=== PATIENT | female | born 1925 | race Caucasian/White ===

== ENCOUNTER 2017-04-05 07:53 | Inpatient (IN) | payer MEDICARE ==
[~2017-04-05] VITALS: Ht 147.3 cm; Wt 60.5 kg
[~2017-04-05 07:53] MED LIST: ADVA500A INH; ALPR.5 PO; CHOL1CAP32 PO; IBUP400T20 PO; LOSA100T3 PO; OMEP40CA2 PO; PRESERVISION PO
[2017-04-05 07:54] VITALS: BP 160/72; PULSE 88; RESP 20; TEMP 98; O2SAT 96
[2017-04-05 08:20] VITALS: BP 166/72; PULSE 79; RESP 19; O2SAT 94
--- NOTE | 2017-04-05 08:22 | PD ---
HPI Chief Complaint: GI Complaint Time Seen by Provider: 08:22 Travel History International Travel<30 days: No Contact w/Intl Traveler<30days: No Traveled to known affect area: No History of Present Illness HPI 89-year-old female came to the emergency room with history of diarrhea on and off for past almost 1 week. Patient says that after he started the first day she took a couple of Imodium and it had stopped but started again. Last night she was on the toilet for extended amount of time because of continuous watery stool. Then finally at 1 AM she took one Imodium pill and another one at 3 AM. She says since then she has not had anymore bowel movements. However because she was not feeling well she decided to come to the emergency room. Her brought her in. She says she is little nauseous but hasn't had any vomiting. No other sick contacts. No recent history of antibiotic conception or hospitalization. Patient has never had C. difficile colitis. Vital signs were acceptable. PFSH Past Medical History Narrative Medical Mr. for past medical, surgical, social and family history was reviewed from the nursing note. Asthma: Yes Cancer: No Cardiovascular Problems: Yes (HTN) Endocrine: No Genitourinary: No Hypertension: Yes Musculoskeletal: Yes Neurologic: No Psychiatric: No Reproductive: No Respiratory: Yes (ASTHMA) Past Surgical History Hysterectomy: Yes Social History Alcohol Use: No Tobacco Use: No Substance Use: No Allergies-Medications (Allergen,Severity, Reaction): Coded Allergies: Adrenalin (Verified Allergy, Severe, 04/05/17) Sulfa (Verified Allergy, Severe, 04/05/17) Comments List allergies reviewed from the nursing note. Reported Meds & Prescriptions Reported Meds & Active Scripts Active Xanax (Alprazolam) 0.5 Mg Tab 1-2 Tab PO HS PRN Advair Diskus Inh (Fluticasone-Salmeterol Inh) 500-50 Mcg/Blist Aer 1 Puff INH BID Rinse mouth after use. Losartan-Hydrochlorothiazide 100-12.5 Mg Tab 1 Tab PO DAILY [Preservision] 1 Tab PO BID Reported Imodium A-D (Loperamide HCl) 2 Mg Capsule 2 Mg PO DIRECTED PRN One capsule after each loose stool. Not to exceed 8 tablets per day. Tums (Calcium Carbonate (Antacid)) 500 Mg Chew 500 Mg CHEW PRN D3-1000 (Cholecalciferol) 1,000 Unit Cap 1 Cap PO DAILY Ibuprofen 400 Mg Tab 400 Mg PO HS 5 Days Omeprazole 40 Mg Cap 40 Mg PO DAILY Narrative Medication List of her home medications reviewed from the nursing note. Review of Systems Except as stated in HPI: all other systems reviewed are Neg Physical Exam Narrative GENERAL: Awake, alert, elderly, frail, moderate distress SKIN: Focused skin assessment warm/dry. HEAD: Atraumatic. Normocephalic. EYES: Pupils equal and round. No scleral icterus. No injection or drainage. ENT: No nasal bleeding or discharge. Dry mucous membrane NECK: Trachea midline. No JVD. CARDIOVASCULAR: Regular rate and rhythm. No murmur appreciated. RESPIRATORY: No accessory muscle use. Clear to auscultation. Breath sounds equal bilaterally. GASTROINTESTINAL: Abdomen soft, non-tender, nondistended. Hepatic and splenic margins not palpable. MUSCULOSKELETAL: No obvious deformities. No clubbing. No cyanosis. No edema. NEUROLOGICAL: Awake and alert. No obvious cranial nerve deficits. Motor grossly within normal limits. Normal speech. PSYCHIATRIC: Appropriate mood and affect; insight and judgment normal. Data Data Last Documented VS Vital Signs Date Time Temp Pulse Resp B/P Pulse Ox O2 Delivery O2 Flow Rate FiO2 04/05/17 11:35 82 19 135/62 96 Room Air 04/05/17 07:54 98.0 Orders Complete Blood Count With Diff (04/05/17 08:32) Comprehensive Metabolic Panel (04/05/17 08:32) Iv Access Insert/Monitor (04/05/17 08:32) Ecg Monitoring (04/05/17 08:32) Oximetry (04/05/17 08:32) Sodium Chlor 0.9% 1000 Ml Inj (Ns 1000 M (04/05/17 08:32) Sodium Chloride 0.9% Flush (Ns Flush) (04/05/17 08:45) C Diff Toxin Pcr (04/05/17 08:51) Potassium Chloride (Kcl) (04/05/17 09:30) Sodium Chlor 0.9% 1000 Ml Inj (Ns 1000 M (04/05/17 09:30) Diphenoxylate/Atropine Tab (Lomotil Tab) (04/05/17 09:45) Metronidazole (Flagyl) (04/05/17 12:00) Admit To Inpatient (04/05/17 ) Vital Signs (Adult) Q4H (04/05/17 13:02) Activity Bed Rest (04/05/17 13:02) Diet Npo (04/05/17 Lunch) Sodium Chloride 0.9% Flush (Ns Flush) (04/05/17 13:15) Sodium Chloride 0.9% Flush (Ns Flush) (04/05/17 13:15) Inpatient Certification (04/05/17 ) Admit Order (Ed Use Only) (04/05/17 13:06) Labs Laboratory Tests Test 04/05/17 04/05/17 08:15 09:00 White Blood Count 10.3 TH/MM3 Red Blood Count 4.20 MIL/MM3 Hemoglobin 13.0 GM/DL Hematocrit 38.4 % Mean Corpuscular Volume 91.5 FL Mean Corpuscular Hemoglobin 30.9 PG Mean Corpuscular Hemoglobin 33.7 % Concent Red Cell Distribution Width 14.1 % Platelet Count 216 TH/MM3 Mean Platelet Volume 8.5 FL Neutrophils (%) (Auto) 78.7 % Lymphocytes (%) (Auto) 9.7 % Monocytes (%) (Auto) 9.1 % Eosinophils (%) (Auto) 1.0 % Basophils (%) (Auto) 1.5 % Neutrophils # (Auto) 8.1 TH/MM3 Lymphocytes # (Auto) 1.0 TH/MM3 Monocytes # (Auto) 0.9 TH/MM3 Eosinophils # (Auto) 0.1 TH/MM3 Basophils # (Auto) 0.2 TH/MM3 CBC Comment DIFF FINAL Differential Comment Sodium Level 141 MEQ/L Potassium Level 3.1 MEQ/L Chloride Level 103 MEQ/L Carbon Dioxide Level 30.2 MEQ/L Anion Gap 8 MEQ/L Blood Urea Nitrogen 22 MG/DL Creatinine 0.76 MG/DL Estimat Glomerular Filtration 72 ML/MIN Rate Random Glucose 93 MG/DL Calcium Level 10.3 MG/DL Total Bilirubin 0.8 MG/DL Aspartate Amino Transf 10 U/L (AST/SGOT) Alanine Aminotransferase 14 U/L (ALT/SGPT) Alkaline Phosphatase 63 U/L Total Protein 7.3 GM/DL Albumin 3.6 GM/DL Stool C. difficile Toxin (PCR) POSITIVE Stl C. difficile Toxin PRESUMPTIVE Epiderm 027 NEGATIVE MDM Medical Decision Making Medical Screen Exam Complete: Yes Emergency Medical Condition: Yes Medical Record Reviewed: Yes Differential Diagnosis Diarrhea, dehydration, C. difficile colitis Narrative Course 9:31 AM I was told by the nurse that patient has had another bowel movement. The stool has been sent for C. difficile. Her blood test results of back and she has slightly elevated BUN which is suggestive of dehydration. CBC is within acceptable range. Her hemoglobin is 13.5 which for her age seems a little hemoconcentrated and hence) dehydration again. I've given her one bolus already and she is going to get a second one. I'll give her a dose of Lomotil. Eventually I intend to discharge her home. 12:09 PM blood test results of back and patient's potassium is low which has been replaced. Her stool test however came back positive for C. difficile. Given her age and the fact that the symptoms have been going on for past 1 week and progressively worsening I discussed with her and I would prefer her to be admitted. She has agreed to that. Awaiting for the residents to call back. Procedures EKG Prior to Arrival: No Diagnosis Primary Impression: Diarrhea Qualified Code: A09 - Diarrhea of infectious origin Additional Impression: C. difficile colitis Admitting Information Admitting Physician Requests: Admit Scripts Metronidazole (Flagyl)500 Mg [id number] Mg PO Q8H #39 TAB Prov:John Gomez MD R3 04/06/17 Danika Posadas MD Apr 05, 2017 08:22
[2017-04-05] MEDS ORDERED: TUMS500C CHEW (08:30)
[2017-04-05] MEDS ORDERED: LOPE-1 PO (08:30)
[2017-04-05] MEDS ORDERED: SODIUM CHLOR 0.9% 1000 ML INJ 1,000 ML IV SCH (08:32)
[2017-04-05 08:42] VITALS: O2SAT 94
[2017-04-05] MEDS ORDERED: SODIUM CHLORIDE 0.9% FLUSH 10 ML FLUSH IV FLUSH PRN ×3 (08:45→14:30)
[2017-04-05 08:51] LABS: AUTOMATED NEUTROPHIL # 8.1 TH/MM3 (1.8-7.7); BASOPHIL # 0.2 TH/MM3 (0-0.2); BASOPHIL % 1.5 % (0.0-2.0); EOSINOPHIL # 0.1 TH/MM3 (0-0.4); HEMATOCRIT 38.4 % (35.0-46.0); HEMO FLAGS DIFF FINAL; LYMPH % 9.7 % (9.0-44.0); MEAN CELL VOLUME 91.5 FL (80.0-100.0); MEAN CORPUSCULAR HEMOGLOBIN 30.9 PG (27.0-34.0); MEAN CORPUSCULAR HGB CONC 33.7 % (32.0-36.0); MONO % 9.1 % (0.0-8.0); NEUT % 78.7 % (16.0-70.0); PLATELET COUNT 216 TH/MM3 (150-450); RED CELL DISTRIBUTION WIDTH 14.1 % (11.6-17.2); WHITE BLOOD COUNT 10.3 TH/MM3 (4.0-11.0)
[2017-04-05 09:19] LABS: ANION GAP 8 MEQ/L (5-15); AST (GOT) 10 U/L (15-37); BICARBONATE 30.2 MEQ/L (21.0-32.0); BLOOD UREA NITROGEN 22 MG/DL (7-18); CHLORIDE 103 MEQ/L (98-107); GLOMERULAR FILTRATION RATE 72 ML/MIN (>89); POTASSIUM 3.1 MEQ/L (3.5-5.1); SODIUM (NA) 141 MEQ/L (136-145)
[2017-04-05 09:25] LABS: ALKALINE PHOSPHATASE 63 U/L (45-117); ALT (GPT) 14 U/L (10-53); TOTAL BILIRUBIN ADULT 0.8 MG/DL (0.2-1.0)
[2017-04-05] MEDS ORDERED: SODIUM CHLOR 0.9% 1000 ML INJ 1,000 ML IV ONE (09:30)
[2017-04-05] MEDS ORDERED: POTASSIUM CHLORIDE 20 MEQ CONTROLLED RELEASE TAB PO ONE (09:30)
[2017-04-05] MEDS ORDERED: DIPHENOXYLATE/ATROPINE 2.5 MG/0.025 MG TAB PO ONE (09:45)
[2017-04-05 11:12] LABS: C. DIFF EPI 027 PRESUMPTIVE NEGATIVE (NEGATIVE)
[2017-04-05 11:25] LABS: C. DIFF TOXIN PCR POSITIVE (NEGATIVE)
[2017-04-05 11:35] VITALS: BP 135/62; PULSE 82; RESP 19; O2SAT 96
[2017-04-05] MEDS ORDERED: metroNIDAZOLE 500 MG TAB PO ONE (12:00)
--- NOTE | 2017-04-05 13:00 | HHI.HP ---
[facility] Service Family Medicine Primary Care Physician Celso Mariano MD Admission Diagnosis Diagnoses: International Travel<30 Days: No Contact w/Intl Traveler<30days: No Known Affected Area: No History of Present Illness Joyce Vickers is a very pleasant 89 year old woman with a h/o HTN who presents to the ED due to intermittent diarrhea over the past 6 days associated with crampy abdominal pain. She states she was in her normal state of health this past Friday 03/30. On Sunday she reports having loose stools with large volume throughout the day. She states she did take Imodium to try to prevent diarrhea. States this past Sunday her stools were no longer watery however she had many small BMs of formed stools. She reports her diarrhea seeming to have resolved for about a day or two but then began to recur 1-2 days ago. She denies any melena or visible blood in her stools. She denies taking any antibiotics recently. No change in her prescribed medications recently. Denies taking anything else OTC other than Imodium. She states she did travel up to [place] by way of the [employer] prior to her onset of symptoms. Denies others around her having symptoms similar to hers. No sick contacts. She does endorse mild chills last night. Denies fevers, night sweats , CP, SOB, cough, dysuria, hematuria. States her abdominal pain is primary around her umbilicus, is crampy in nature, nonradiating, the pain has overall been mild. 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 Osteoarthritis Compression fractures of T11, L1 LS spinal stenosis Osteoporosis Hospitalized 01/2016 for sinus bradycardia, first degree AV block, dizziness; beta-aries therapy stopped Past Surgical History SHY with BSO (benign disease process) Repair of deviated septum Arthroscopic knee surgery Allergies: Coded Allergies: Adrenalin (Verified Allergy, Severe, 04/05/17) Sulfa (Verified Allergy, Severe, 04/05/17) Family History Father: at 88 of [place], also had history of bladder cancer Mother: at 80 of CHF Children: daughter living in winter Social History Marrital Status: Living Situation: living with in independent apartment at [facility] - previously was living in [place] Education: college degree Work history: clerical (retired) Tobacco: none Alcohol: none Illicit drug use: none Physical Exam Vital Signs Vital Signs Date Time Temp Pulse Resp B/P Pulse Ox O2 Delivery O2 Flow Rate FiO2 04/05/17 11:35 82 19 135/62 96 Room Air 04/05/17 08:42 94 Room Air 04/05/17 08:20 79 19 166/72 94 Room Air 04/05/17 07:54 98.0 88 20 160/72 96 Room Air Physical Exam GENERAL: NAD, lying comfortably in bed NEURO: Alert. Normal speech. retina subspecialist grossly intact. Motor grossly normal. SKIN: Warm and dry. No rashes or erythema. No skin tenting. Good turgor. HEAD: Normocephalic. Atraumatic. EYES: PERRL. EOMI. No scleral icterus. No injection or drainage. ENT: No nasal drainage. Moist mucous membranes. No oral ulcers or lesions. NECK: Supple, trachea midline. No JVD. CARDIOVASCULAR: Regular rate and rhythm without murmurs, rubs, or gallops. Peripheral pulses 2+. Capillary refill ~2 seconds. RESPIRATORY: Breath sounds clear to auscultation and equal bilaterally, without wheezes, rales, or rhonchi. No accessory muscle use. GASTROINTESTINAL: Abdomen soft, mildly tender to deep palpation LLQ, other quadrants are nontender, nondistended, normal BS. No organomegaly or masses. No rebound tenderness. No guarding. MUSCULOSKELETAL: No lower extremity edema. Normal range of motion. BACK: Nontender without obvious deformity. Laboratory Laboratory Tests Test 04/05/17 04/05/17 08:15 09:00 White Blood Count 10.3 Red Blood Count 4.20 Hemoglobin 13.0 Hematocrit 38.4 Mean Corpuscular Volume 91.5 Mean Corpuscular Hemoglobin 30.9 Mean Corpuscular Hemoglobin 33.7 Concent Red Cell Distribution Width 14.1 Platelet Count 216 Mean Platelet Volume 8.5 Neutrophils (%) (Auto) 78.7 Lymphocytes (%) (Auto) 9.7 Monocytes (%) (Auto) 9.1 Eosinophils (%) (Auto) 1.0 Basophils (%) (Auto) 1.5 Neutrophils # (Auto) 8.1 Lymphocytes # (Auto) 1.0 Monocytes # (Auto) 0.9 Eosinophils # (Auto) 0.1 Basophils # (Auto) 0.2 CBC Comment DIFF FINAL Differential Comment Sodium Level 141 Potassium Level 3.1 Chloride Level 103 Carbon Dioxide Level 30.2 Anion Gap 8 Blood Urea Nitrogen 22 Creatinine 0.76 Estimat Glomerular Filtration 72 Rate Random Glucose 93 Calcium Level 10.3 Total Bilirubin 0.8 Aspartate Amino Transf 10 (AST/SGOT) Alanine Aminotransferase 14 (ALT/SGPT) Alkaline Phosphatase 63 Total Protein 7.3 Albumin 3.6 Stool C. difficile Toxin (PCR) POSITIVE Stl C. difficile Toxin PRESUMPTIVE Epiderm 027 NEGATIVE Result Diagram: 04/05/1781404/05/17814 Assessment and Plan Assessment and Plan 89 year old female being admitted for C diff colitis. Code Status Full code Discussed Condition With Dr. Cooley Problem List: (1) C. difficile diarrhea Status: Acute Plan: - C diff toxin PCR positive - No prior history of C diff in this patient per records - Given 500 mg PO Flagyl in the ED - Continue Flagyl 500 mg po TID - No leukocytosis - Cr 0.76 - Albumin 3.6 - Consider probiotics, will hold off at this time - s/p 2L NS bolus in ED - Continue MIVF NS at 100 cc/hr (2) Hypertension Status: Chronic Plan: Continue Losartan-HCTZ 100-12.5 mg once daily Monitor vitals q4h (3) Asthma Status: Chronic Plan: Stable Continue home Advair 1 puff bid (4) Nutrition, metabolism, and development symptoms Status: Acute Plan: Fluids: NS at 100 cc/hr Electrolytes: K+ 3.1 repleted orally, continue to monitor Nutrition: Regular DVT ppx: Lovenox 40 mg sq q24h GI ppx: Protonix 40 mg po daily Physician Certification 2 Midnight Certification Type: Admission for Inpatient Services Order for Inpatient Services The services are ordered in accordance with Medicare regulations or non- Medicare payer requirements, as applicable. In the case of services not specified as inpatient-only, they are appropriately provided as inpatient services in accordance with the 2-midnight benchmark. Estimated LOS (days): 2 days is the estimated time the patient will need to remain in the hospital, assuming treatment plan goals are met and no additional complications. Post-Hospital Plan: Home Shelton Ennis MD R1 Apr 05, 2017 13:00
[2017-04-05] MEDS ORDERED: SODIUM CHLORIDE 0.9% FLUSH 10 ML FLUSH IV FLUSH SCH (13:15)
[2017-04-05] MEDS ORDERED: ONDANSETRON HCL 4 MG/2 ML VIAL IVP PRN (14:30)
[2017-04-05] MEDS ORDERED: NALOXONE HCL 0.4 MG/ML AMP IV PRN (14:30)
[2017-04-05] MEDS ORDERED: ACETAMINOPHEN 325 MG TAB PO PRN (14:30)
[2017-04-05] MEDS: SODIUM CHLORIDE 0.9% FLUSH 10 ML FLUSH IV FLUSH SCH ×2 (14:30→20:33)
[2017-04-05] MEDS ORDERED: NON-FORMULARY DRUG (Losartan-Hydrochlorothiazide 1 TAB) PO SCH (14:45)
[2017-04-05 16:00] VITALS: BP 121/60; PULSE 76; RESP 20; TEMP 98.4; O2SAT 92
--- NOTE | 2017-04-05 16:11 | RADRPT ---
EXAM DATE/TIME: 04/05/2017 14:55 [facility] COMPARISON: CHEST PA & LAT, September 19, 2014, 11:40. INDICATIONS : Chest discomfort. MEDICAL HISTORY : Hypertension. Asthma. SURGICAL HISTORY : None. ENCOUNTER: Initial ACUITY: 1 day PAIN SCORE: 0/10 LOCATION: Bilateral chest FINDINGS: Frontal and lateral views of the chest demonstrate a normal-sized cardiac silhouette with calcificati on of the aorta. No pleural effusion, airspace consolidation or pneumothorax is identified. There is stable minimal blunting of the right costophrenic angle on the frontal projection. Bones and soft tis sues demonstrate no acute finding. Bones are undermineralized with degenerative changes and accentuat ed thoracic kyphosis. There has been prior vertebroplasty at 2 levels. CONCLUSION: Stable chest x-ray. No acute cardiopulmonary abnormality is identified. Osorio Perez MD on April 05, 2017 at 16:08 Board Certified Radiologist. This report was verified electronically.
[2017-04-05] MEDS: HYDROCHLOROTHIAZIDE 12.5 MG CAP PO SCH (17:21)
[2017-04-05] MEDS: LOSARTAN 50 MG TAB PO SCH (17:21)
[2017-04-05] MEDS: SODIUM CHLOR 0.9% 1000 ML INJ 1,000 ML IV SCH (17:21)
[2017-04-05] MEDS: ENOXAPARIN SODIUM 40 MG/0.4 ML SYRINGE SQ SCH (17:22)
[2017-04-05] MEDS: PANTOPRAZOLE SOD 40 MG DELAYED RELEASE TAB PO SCH (17:22)
[2017-04-05 20:00] VITALS: BP 141/82; PULSE 83; RESP 18; TEMP 99.2; O2SAT 93
[2017-04-05] MEDS: metroNIDAZOLE 500 MG TAB PO SCH (20:33)
[2017-04-05] MEDS: BUDESONIDE-FORMOTEROL 160/4.5 MCG INHALER INH SCH (21:00)
[2017-04-05] MEDS ORDERED: ALPRAZolam 0.5 MG TAB PO PRN (21:00)
[2017-04-06] VITALS (7 sets, daily range): BP systolic 123–151; BP diastolic 56–66; PULSE 67–82; RESP 18–20; TEMP 97.8–98.9; O2SAT 93–97
[2017-04-06] MEDS: SODIUM CHLOR 0.9% 1000 ML INJ 1,000 ML IV SCH ×2 (02:00→12:29)
[2017-04-06] MEDS: metroNIDAZOLE 500 MG TAB PO SCH ×3 (06:05→20:06)
[2017-04-06 08:53] LABS: AUTOMATED NEUTROPHIL # 3.5 TH/MM3 (1.8-7.7); BASOPHIL # 0.1 TH/MM3 (0-0.2); BASOPHIL % 1.1 % (0.0-2.0); EOSINOPHIL # 0.1 TH/MM3 (0-0.4); EOSINOPHIL % 2.2 % (0.0-4.0); HEMATOCRIT 32.1 % (35.0-46.0); HEMO FLAGS DIFF FINAL; LYMPH % 20.6 % (9.0-44.0); LYMPHOCYTE # 1.2 TH/MM3 (1.0-4.8); MEAN CELL VOLUME 91.7 FL (80.0-100.0); MEAN CORPUSCULAR HEMOGLOBIN 31.1 PG (27.0-34.0); MONO % 14.1 % (0.0-8.0); PLATELET COUNT 183 TH/MM3 (150-450); WHITE BLOOD COUNT 5.6 TH/MM3 (4.0-11.0)
[2017-04-06] MEDS: LOSARTAN 50 MG TAB PO SCH (09:05)
[2017-04-06] MEDS: SODIUM CHLORIDE 0.9% FLUSH 10 ML FLUSH IV FLUSH SCH ×2 (09:05→20:07)
[2017-04-06] MEDS: PANTOPRAZOLE SOD 40 MG DELAYED RELEASE TAB PO SCH (09:05)
[2017-04-06] MEDS: HYDROCHLOROTHIAZIDE 12.5 MG CAP PO SCH (09:05)
[2017-04-06] MEDS: BUDESONIDE-FORMOTEROL 160/4.5 MCG INHALER INH SCH ×2 (09:06→20:07)
[2017-04-06 09:19] LABS: ALKALINE PHOSPHATASE 54 U/L (45-117); ALT (GPT) 13 U/L (10-53); ANION GAP 6 MEQ/L (5-15); AST (GOT) 12 U/L (15-37); BICARBONATE 28.2 MEQ/L (21.0-32.0); BLOOD UREA NITROGEN 14 MG/DL (7-18); CHLORIDE 106 MEQ/L (98-107); GLOMERULAR FILTRATION RATE 86 ML/MIN (>89); POTASSIUM 3.4 MEQ/L (3.5-5.1); SODIUM (NA) 140 MEQ/L (136-145)
--- NOTE | 2017-04-06 15:22 | HHI.FPPN ---
Subjective Remarks The pt states that she is feeling much better today and has not had 1 BM since she was given Imodium and Flagyl yesterday. She has not had any stomach cramps since yesterday. She recently traveled to [place] and ate out most of the time but did not eat any raw foods. She was not currently on any antibiotics or around anyone with similar symptoms. She denies chest pain, SOB, fevers, nausea/ vomiting, changes in urination, and dizziness. She has no concerns at this time. (Trae Cooley MD R1) Objective Vitals Vital Signs Date Time Temp Pulse Resp B/P Pulse Ox O2 Delivery O2 Flow Rate FiO2 04/06/17 13:01 94 04/06/17 12:00 97.8 69 18 151/66 94 04/06/17 08:00 98.8 70 18 127/56 93 04/06/17 04:00 98.2 73 20 123/58 94 04/06/17 04:00 Room Air 04/06/17 00:00 Room Air 04/06/17 00:00 98.9 82 18 128/61 93 04/05/17 20:00 99.2 83 18 141/82 93 04/05/17 20:00 Room Air 04/05/17 16:00 98.4 76 20 121/60 92 I/O 04/05/17 04/05/17 04/05/17 04/06/17 04/06/17 04/06/17 07:00 15:00 23:00 07:00 15:00 23:00 Intake Total 360 ml 893 ml Output Total 700 ml Balance 360 ml 193 ml Intake Oral 360 ml 120 ml IV Total 773 ml Output Urine Total 700 ml # Voids 1 # Bowel Movements 1 0 (Trae Cooley MD R1) Result Diagram: 04/06/17 0757 04/06/17 0757 Other Results Imaging Last Impressions Chest X-Ray 04/05/17 1429 Signed Impressions: Service Date/Time: April 14:55 - CONCLUSION: Stable chest x-ray. No acute cardiopulmonary abnormality is identified. Osorio Perez MD Objective Remarks GENERAL: NAD, lying comfortably in bed NEURO: Alert. Normal speech. SKIN: Warm and dry. HEAD: Normocephalic. Atraumatic. EYES: No scleral icterus. No injection or drainage. ENT: No nasal drainage. Moist mucous membranes. NECK: Supple, trachea midline. No JVD. CARDIOVASCULAR: Regular rate and rhythm without murmurs, rubs, or gallops. Peripheral pulses 2+. RESPIRATORY: Breath sounds clear to auscultation and equal bilaterally, without wheezes, rales, or rhonchi. No accessory muscle use. GASTROINTESTINAL: Abdomen soft and nontender, nondistended, normal BS. No organomegaly or masses. No rebound tenderness. No guarding. MUSCULOSKELETAL: No lower extremity edema. Normal range of motion. Medications and IVs Current Medications Medications (Trade) Dose Ordered Sig/Isaac Route Start Time Stop Time Status Last Admin (NS 1000 ml Inj) 1,000 ml @ 100 mls/hr Q10H IV 04/05/17 16:00 04/06/17 12:29 (NS Flush) 2 ml UNSCH PRN IV FLUSH 04/05/17 14:30 (NS Flush) 2 ml BID IV FLUSH 04/05/17 14:30 04/06/17 09:05 (Tylenol) 650 mg Q4H PRN PO 04/05/17 14:30 (Zofran Inj) 4 mg Q6H PRN IVP 04/05/17 14:30 (Lovenox Inj) 40 mg Q24H SQ 04/05/17 16:00 04/05/17 17:22 (Narcan Inj) 0.4 mg UNSCH PRN IV 04/05/17 14:30 (Flagyl) 500 mg Q8H PO 04/05/17 20:00 04/06/17 12:29 (Symbicort 160-4.5 Inh) 2 puff BID INH 04/05/17 21:00 04/06/17 09:06 (Xanax) 0.5 mg HS PRN PO 04/05/17 21:00 04/05/17 23:12 (Protonix) 40 mg DAILY PO 04/05/17 16:00 04/06/17 09:05 (Cozaar) 100 mg DAILY PO 04/05/17 16:00 04/06/17 09:05 (Microzide) 12.5 mg DAILY PO 04/05/17 16:00 04/06/17 09:05 (Trae Cooley MD R1) A/P Assessment and Plan 89 year old female admitted for C diff colitis. Discharge Planning Pt will be discharged home once stable with fluids and without diarrhea. Anticipate discharge later today. (Trae Cooley MD R1) Attending Attestation THIS CASE WAS DISCUSSED WITH THE RESIDENT PHYSICIANS. I HAVE REVIEWED THE RECORD AND EXAMINATION PERFORMED. AGREE WITH THE ABOVE NOTE AND PLAN OF CARE WAS DISCUSSED. I HAVE AUTHORIZED THE ORDER FOR ADMISSION TO AN IN-PATIENT STATUS. (Moi Cervantes MD) Problem List: (1) C. difficile diarrhea Status: Acute Plan: - C diff toxin PCR positive - No prior history of C diff in this patient per records - Given 500 mg PO Flagyl in the ED - Continue Flagyl 500 mg po TID - No leukocytosis - Cr 0.76 - Albumin 3.6 - Consider probiotics, will hold off at this time - s/p 2L NS bolus in ED - Continue MIVF NS at 100 cc/hr (2) Hypertension Status: Chronic Plan: Continue Losartan-HCTZ 100-12.5 mg once daily Monitor vitals q4h (3) Asthma Status: Chronic Plan: Stable Continue home Advair 1 puff bid (4) Nutrition, metabolism, and development symptoms Status: Acute Plan: Fluids: NS at 100 cc/hr Electrolytes: K+ 3.1 repleted orally, continue to monitor Nutrition: Regular DVT ppx: Lovenox 40 mg sq q24h GI ppx: Protonix 40 mg po daily (Trae Cooley MD R1) Addendum Remarks Patient seen and examined again at 6:00 pm. Patient still has not had a bowel movement since our last examination. She does note that she feels as though she will have one today, but has no sense of urgency. No pain in her chest, shortness of breath, change in urinary habits. On examination her abdomen is soft, nondistended, nontender, without guarding, and has normal bowel sounds in all 4 quadrants. (Trae Cooley MD R1) Trae Cooley MD R1 Apr 06, 2017 15:22 Moi Cervantes MD Apr 08, 2017 14:21
[2017-04-06] MEDS ORDERED: METR-1 PO (18:10)
--- NOTE | 2017-04-06 18:11 | HHI.DCPOC ---
Discharge Care Plan Diagnosis: (1) C. difficile diarrhea (2) Hypertension Goals to Promote Your Health * To prevent worsening of your condition and complications * To maintain your health at the optimal level Directions to Meet Your Goals Take your medications as prescribed Follow your dietary instruction Follow activity as directed Keep your appointments as scheduled Take your immunizations and boosters as scheduled If your symptoms worsen call your PCP, if no PCP go to Urgent Care Center or Emergency Room Smoking is Dangerous to Your Health. Avoid second hand smoke Call the 24-hour hour crisis hotline for domestic abuse at John Gomez MD R3 Apr 06, 2017 18:11
[2017-04-06] MEDS: ENOXAPARIN SODIUM 40 MG/0.4 ML SYRINGE SQ SCH (18:12)
[2017-04-06] MEDS ORDERED: POTASSIUM CHLORIDE 10 MEQ CAP PO ONE (19:00)
== END 2017-04-06 20:22 | disposition home or self-care (01) | DRG 372 ==
LOC: NEPC 07:53 → NEDA 13:08 → N04A 15:43
PROVIDERS: ADMIT Family Medicine; ATTEND Family Medicine
DX: A04.7 Enterocolitis due to Clostridium difficile (principal); H33.22 Serous retinal detachment, left eye; E86.0 Dehydration; E87.6 Hypokalemia; H54.62 Unqualified visual loss, left eye, normal vision right eye; I10 Essential (primary) hypertension; J45.909 Unspecified asthma, uncomplicated; Z87.11 Personal history of peptic ulcer disease; M19.90 Unspecified osteoarthritis, unspecified site; M48.07 Spinal stenosis, lumbosacral region; M81.0 Age-related osteoporosis without current pathological fracture; Z87.310 Personal history of (healed) osteoporosis fracture
CPT/HCPCS: 71020; 80053; 85025; 87493; 96360; J1650; J7030

== ENCOUNTER → 2017-04-11 | Outpatient (CLI) | payer MEDICARE ==
[~2017-04-11] MED LIST changes: +HYDR-3516 PO; +LOPE-1 PO; +METR-1 PO; +TRAM50TA PO; +TUMS500C CHEW; +ZOFR4TAB3 SL
[2017-04-11 15:21] LABS: BICARBONATE 30.9 MEQ/L (21.0-32.0); POTASSIUM 3.5 MEQ/L (3.5-5.1)
== END ==
LOC: ELAB 10:25
PROVIDERS: ATTEND Family Medicine
DX: A04.7 Enterocolitis due to Clostridium difficile (principal); I10 Essential (primary) hypertension
CPT/HCPCS: 36415; 80048

== ENCOUNTER 2017-04-12 10:07 | Emergency (ER) | payer MEDICARE ==
[~2017-04-12] VITALS: Ht 147.3 cm; Wt 61.5 kg
[~2017-04-12 10:07] MED LIST changes: -HYDR-3516 PO; -TRAM50TA PO; -ZOFR4TAB3 SL
[2017-04-12 10:08] VITALS: BP 154/67; PULSE 86; RESP 20; TEMP 98.9; O2SAT 96
[2017-04-12] MEDS ORDERED: SODIUM CHLOR 0.9% 1000 ML INJ 1,000 ML IV SCH (10:25)
--- NOTE | 2017-04-12 10:25 | PD ---
HPI Chief Complaint: GI Complaint Time Seen by Provider: 10:25 Travel History International Travel<30 days: No Contact w/Intl Traveler<30days: No Traveled to known affect area: No History of Present Illness HPI 89-year-old female arrives to the ER describing irregular bowel habits. She reports yesterday for example one bowel movement that was her description a fairly large fecal load. The day prior to yesterday 3 episodes of similar bowel movements occurred. She was diagnosed with C. difficile colitis one week ago and was started on Flagyl and has been compliant with that. She was given Lomotil one week ago and following what had been very frequent diarrhea she had no bowel movement for 3 days. She describes tenesmus. Yesterday the patient experienced a fecal incontinence while rushing to the bathroom. She's had no fever or vomiting. Occasional nausea occurs and is attributed to side effects from Flagyl. She follows with Dr. Mariano. Diet has been normal. PFSH Past Medical History Arthritis: Yes Asthma: Yes Cancer: No Cardiovascular Problems: Yes (HTN) High Cholesterol: No Endocrine: No Genitourinary: No Hypertension: Yes Musculoskeletal: Yes Neurologic: No Psychiatric: No Reproductive: No Respiratory: Yes (ASTHMA) ?: Not Past Surgical History Hysterectomy: Yes Social History Alcohol Use: No Tobacco Use: No Substance Use: No Allergies-Medications (Allergen,Severity, Reaction): Coded Allergies: Adrenalin (Verified Allergy, Severe, 04/05/17) Sulfa (Verified Allergy, Severe, 04/05/17) Reported Meds & Prescriptions Reported Meds & Active Scripts Active Flagyl (Metronidazole) 500 Mg Tab 500 Mg PO Q8H Xanax (Alprazolam) 0.5 Mg Tab 1-2 Tab PO HS PRN Advair Diskus Inh (Fluticasone-Salmeterol Inh) 500-50 Mcg/Blist Aer 1 Puff INH BID Rinse mouth after use. Losartan-Hydrochlorothiazide 100-12.5 Mg Tab 1 Tab PO DAILY [Preservision] 1 Tab PO BID Reported Imodium A-D (Loperamide HCl) 2 Mg Capsule 2 Mg PO DIRECTED PRN One capsule after each loose stool. Not to exceed 8 tablets per day. Tums (Calcium Carbonate (Antacid)) 500 Mg Chew 500 Mg CHEW PRN D3-1000 (Cholecalciferol) 1,000 Unit Cap 1 Cap PO DAILY Ibuprofen 400 Mg Tab 400 Mg PO HS 5 Days Omeprazole 40 Mg Cap 40 Mg PO DAILY Review of Systems Except as stated in HPI: all other systems reviewed are Neg General / Constitutional: No: Fever Gastrointestinal: Positive: Changes in Bowel Habits, No: Nausea Physical Exam Narrative GENERAL: 89-year-old female well-nourished well-developed pleasant SKIN: Warm and dry. HEAD: Atraumatic. Normocephalic. EYES: Pupils equal and round. No scleral icterus. No injection or drainage. ENT: No nasal bleeding or discharge. Mucous membranes pink and moist. NECK: Trachea midline. No JVD. CARDIOVASCULAR: Regular rate and rhythm. RESPIRATORY: No accessory muscle use. Clear to auscultation. Breath sounds equal bilaterally. GASTROINTESTINAL: Abdomen soft, non-tender, nondistended. Hepatic and splenic margins not palpable. MUSCULOSKELETAL: Extremities without clubbing, cyanosis, or edema. No obvious deformities. NEUROLOGICAL: Awake and alert. No obvious cranial nerve deficits. Motor grossly within normal limits. Five out of 5 muscle strength in the arms and legs. Normal speech. PSYCHIATRIC: Appropriate mood and affect; insight and judgment normal. Data Data Last Documented VS Vital Signs Date Time Temp Pulse Resp B/P Pulse Ox O2 Delivery O2 Flow Rate FiO2 04/12/17 10:27 95 Room Air 04/12/17 10:08 98.9 86 20 154/67 Vital signs reviewed Orders Basic Metabolic Panel (Bmp) (04/12/17 10:25) Complete Blood Count With Diff (04/12/17 10:25) Iv Access Insert/Monitor (04/12/17 10:25) Ecg Monitoring (04/12/17 10:25) Oximetry (04/12/17 10:25) Sodium Chlor 0.9% 1000 Ml Inj (Ns 1000 M (04/12/17 10:25) Sodium Chloride 0.9% Flush (Ns Flush) (04/12/17 10:30) Labs Laboratory Tests Test 04/12/17 10:30 White Blood Count 9.0 TH/MM3 Red Blood Count 4.08 MIL/MM3 Hemoglobin 12.1 GM/DL Hematocrit 37.5 % Mean Corpuscular Volume 91.9 FL Mean Corpuscular Hemoglobin 29.7 PG Mean Corpuscular Hemoglobin 32.3 % Concent Red Cell Distribution Width 14.4 % Platelet Count 249 TH/MM3 Mean Platelet Volume 7.8 FL Neutrophils (%) (Auto) 78.6 % Lymphocytes (%) (Auto) 10.6 % Monocytes (%) (Auto) 8.7 % Eosinophils (%) (Auto) 1.1 % Basophils (%) (Auto) 1.0 % Neutrophils # (Auto) 7.1 TH/MM3 Lymphocytes # (Auto) 1.0 TH/MM3 Monocytes # (Auto) 0.8 TH/MM3 Eosinophils # (Auto) 0.1 TH/MM3 Basophils # (Auto) 0.1 TH/MM3 CBC Comment DIFF FINAL Differential Comment Sodium Level 138 MEQ/L Potassium Level 3.7 MEQ/L Chloride Level 102 MEQ/L Carbon Dioxide Level 28.6 MEQ/L Anion Gap 7 MEQ/L Blood Urea Nitrogen 20 MG/DL Creatinine 0.89 MG/DL Estimat Glomerular Filtration 60 ML/MIN Rate Random Glucose 125 MG/DL Calcium Level 9.5 MG/DL MDM Medical Decision Making Medical Screen Exam Complete: Yes Emergency Medical Condition: Yes Medical Record Reviewed: Yes Differential Diagnosis Gastritis, pancreatitis, appendicitis, acute cholecystitis, ascending cholangitis, AAA, perforated viscous, mesenteric ischemia, hepatitis, cystitis, hydronephrosis/hydroureter/nephroureter calculus, mesenteric adenitis, biliary colic Narrative Course CBC & BMP Diagram 04/12/17 10:30 The patient is resting comfortably and feels better, is alert and in no distress. The patients results and examination findings were discussed. The repeat examination is unremarkable and benign. The history, exam, diagnostic testing, and current condition do not suggest any significant pathology to warrant further testing, continued ED treatment, admission, or surgical evaluation at this point. The vital signs have been stable. The patient does not have uncontrollable pain, intractable vomiting, or other significant symptoms. The patient's condition is stable and appropriate for discharge. The patient will pursue further outpatient evaluation with a primary care physician or other designated or consulting physician as indicated in the discharge instructions. The patient expressed understanding and was agreeable with this plan. Diagnosis Primary Impression: Irregular bowel habits Referrals: Celso Mariano MD 2 days Additional Instructions: Please follow the dietary guidelines we discussed. Should you develop a fever, rate current diarrhea with loose stool, bloody stool, vomiting or abdominal pain please do not hesitate to return to the ER or follow up with your primary doctor. Med/Other Pt SpecificInfo: No Change to Meds Disposition: 01 DISCHARGE HOME Condition: Stable Jairon Schwab MD Apr 12, 2017 10:25
[2017-04-12 10:27] VITALS: O2SAT 95
[2017-04-12] MEDS ORDERED: SODIUM CHLORIDE 0.9% FLUSH 10 ML FLUSH IV FLUSH PRN (10:30)
[2017-04-12 10:44] LABS: AUTOMATED NEUTROPHIL # 7.1 TH/MM3 (1.8-7.7); BASOPHIL # 0.1 TH/MM3 (0-0.2); EOSINOPHIL # 0.1 TH/MM3 (0-0.4); EOSINOPHIL % 1.1 % (0.0-4.0); HEMATOCRIT 37.5 % (35.0-46.0); HEMO FLAGS DIFF FINAL; LYMPH % 10.6 % (9.0-44.0); MEAN CELL VOLUME 91.9 FL (80.0-100.0); MEAN CORPUSCULAR HEMOGLOBIN 29.7 PG (27.0-34.0); MEAN CORPUSCULAR HGB CONC 32.3 % (32.0-36.0); MONO % 8.7 % (0.0-8.0); NEUT % 78.6 % (16.0-70.0); PLATELET COUNT 249 TH/MM3 (150-450); RED BLOOD COUNT 4.08 MIL/MM3 (4.00-5.30); RED CELL DISTRIBUTION WIDTH 14.4 % (11.6-17.2)
[2017-04-12 11:01] LABS: BICARBONATE 28.6 MEQ/L (21.0-32.0); POTASSIUM 3.7 MEQ/L (3.5-5.1)
[2017-04-12] MEDS ORDERED: ZOFR4TAB3 SL (11:28)
[2017-06-05] MEDS ORDERED: TRAM50TA PO (16:27)
[2017-06-13] MEDS ORDERED: ADVA500A INH (10:21)
[2017-06-13] MEDS ORDERED: ALPR.5 PO (10:21)
== END 2017-04-12 11:52 | disposition home or self-care (01) ==
LOC: NEPE 10:07
DX: R19.4 Change in bowel habit (principal)
CPT/HCPCS: 80048; 85025; 96360; 99284; J7030

== ENCOUNTER 2017-05-22 19:38 | Observation (INO) | payer MEDICARE ==
[~2017-05-22] VITALS: Ht 147.3 cm; Wt 60.0 kg
[~2017-05-22 19:38] MED LIST changes: +ZOFR4TAB3 SL
[2017-05-22] MEDS ORDERED: IOHEXOL 350 MG/ML 10 ML VIAL (for RAD DIAG) IVCONTRAST ONE (19:39)
[2017-05-22 19:40] VITALS: BP 177/77; PULSE 81; RESP 16; TEMP 98.3; O2SAT 96
--- NOTE | 2017-05-22 20:25 | PD ---
HPI Chief Complaint: GI Complaint Time Seen by Provider: 20:27 Travel History International Travel<30 days: No Contact w/Intl Traveler<30days: No Traveled to known affect area: No History of Present Illness HPI This is an 89-year-old female who presents for evaluation of loose stools, abdominal pain. Symptoms started 4-5 days ago. She reports 4-5 episodes of loose stools on a daily basis, crampy lower abdominal pain which is constant with no alleviating factors. She does report that the bowel movement seemed to improve with the use of Gas-X. She denies fevers or chills. She endorses some nausea but no vomiting. The patient was admitted in early April for diarrhea and C. difficile colitis and this feels similar. She does report that she was on 3 different rounds of antibiotics in the past month to treat UTI. She has no other complaints at this time. PFSH Past Medical History Arthritis: Yes Asthma: Yes Cancer: No Cardiovascular Problems: Yes High Cholesterol: No Endocrine: No Gastrointestinal Disorders: No Genitourinary: No Hypertension: Yes Musculoskeletal: Yes Neurologic: No Psychiatric: No Reproductive: No Respiratory: Yes (ASTHMA) Past Surgical History Hysterectomy: Yes Other Surgery: Yes Social History Alcohol Use: No Tobacco Use: No Substance Use: No Allergies-Medications (Allergen,Severity, Reaction): Coded Allergies: Sulfa (Sulfonamide Antibiotics) (Unverified Allergy, Severe, 05/22/17) epinephrine (Unverified Allergy, Severe, 05/22/17) Reported Meds & Prescriptions Reported Meds & Active Scripts Active Flagyl (Metronidazole) 500 Mg Tab 500 Mg PO Q8H Xanax (Alprazolam) 0.5 Mg Tab 1-2 Tab PO HS PRN Advair Diskus Inh (Fluticasone-Salmeterol Inh) 500-50 Mcg/Blist Aer 1 Puff INH BID Rinse mouth after use. Losartan-Hydrochlorothiazide 100-12.5 Mg Tab 1 Tab PO DAILY Reported Imodium A-D (Loperamide HCl) 2 Mg Capsule 2 Mg PO DIRECTED PRN One capsule after each loose stool. Not to exceed 8 tablets per day. Tums (Calcium Carbonate (Antacid)) 500 Mg Chew 500 Mg CHEW PRN D3-1000 (Cholecalciferol) 1,000 Unit Cap 1 Cap PO DAILY Ibuprofen 400 Mg Tab 400 Mg PO HS 5 Days Omeprazole 40 Mg Cap 40 Mg PO DAILY Review of Systems Except as stated in HPI: all other systems reviewed are Neg Physical Exam Narrative GENERAL: Well-developed well-nourished female in no acute distress SKIN: Warm and dry. HEAD: Atraumatic. Normocephalic. EYES: Pupils equal and round. No scleral icterus. No injection or drainage. ENT: No nasal bleeding or discharge. Mucous membranes pink and moist. NECK: Trachea midline. No JVD. CARDIOVASCULAR: Regular rate and rhythm. No murmur appreciated. RESPIRATORY: No accessory muscle use. Clear to auscultation. Breath sounds equal bilaterally. GASTROINTESTINAL: Abdomen soft, mild left lower quadrant/suprapubic tenderness to palpation without guarding. There is no CVA tenderness. MUSCULOSKELETAL: No obvious deformities. No clubbing. No cyanosis. No edema. NEUROLOGICAL: Awake and alert. No obvious cranial nerve deficits. Motor grossly within normal limits. Normal speech. PSYCHIATRIC: Appropriate mood and affect; insight and judgment normal. Data Data Last Documented VS Vital Signs Date Time Temp Pulse Resp B/P (MAP) Pulse Ox O2 Delivery O2 Flow Rate FiO2 05/22/17 19:40 98.3 81 16 177/77 (110) 96 Room Air Orders Orders Complete Blood Count With Diff (05/22/17 20:22) Comprehensive Metabolic Panel (05/22/17 20:22) Lipase (05/22/17 20:22) Lactic Acid (05/22/17 20:22) Urinalysis - C+S If Indicated (05/22/17 20:22) Ct Abd/Pel W Iv Contrast(Rout) (05/22/17 20:22) Iv Access Insert/Monitor (05/22/17 20:22) Ondansetron Inj (Zofran Inj) (05/22/17 20:30) Morphine Inj (Morphine Inj) (05/22/17 20:30) C Diff Toxin Pcr (05/22/17 20:22) Isolation (05/22/17 20:22) Urine Culture (05/22/17 20:48) Potassium Chloride (Kcl) (05/22/17 21:30) Iohexol 350 Inj (Omnipaque 350 Inj) (05/22/17 19:39) Orphenadrine Inj (Norflex Inj) (05/22/17 21:45) Ciprofloxacin 400 Mg Premix (Cipro 400 M (05/22/17 22:00) Metronidazole 500 Mg Inj (Flagyl 500 Mg (05/22/17 22:00) Sodium Chlor 0.9% 1000 Ml Inj (Ns 1000 M (05/22/17 21:50) Admit Order (Ed Use Only) (05/22/17 21:57) Labs Laboratory Tests Test 05/22/17 20:27 05/22/17 20:48 White Blood Count 6.8 TH/MM3 Red Blood Count 4.05 MIL/MM3 Hemoglobin 12.1 GM/DL Hematocrit 37.0 % Mean Corpuscular Volume 91.4 FL Mean Corpuscular Hemoglobin 30.0 PG Mean Corpuscular Hemoglobin Concent 32.8 % Red Cell Distribution Width 13.6 % Platelet Count 302 TH/MM3 Mean Platelet Volume 7.9 FL Neutrophils (%) (Auto) 64.0 % Lymphocytes (%) (Auto) 21.6 % Monocytes (%) (Auto) 11.1 % Eosinophils (%) (Auto) 2.6 % Basophils (%) (Auto) 0.7 % Neutrophils # (Auto) 4.4 TH/MM3 Lymphocytes # (Auto) 1.5 TH/MM3 Monocytes # (Auto) 0.8 TH/MM3 Eosinophils # (Auto) 0.2 TH/MM3 Basophils # (Auto) 0.0 TH/MM3 CBC Comment DIFF FINAL Differential Comment Blood Urea Nitrogen 21 MG/DL Creatinine 0.98 MG/DL Random Glucose 93 MG/DL Total Protein 7.6 GM/DL Albumin 3.5 GM/DL Calcium Level 9.7 MG/DL Alkaline Phosphatase 72 U/L Aspartate Amino Transf (AST/SGOT) 13 U/L Alanine Aminotransferase (ALT/SGPT) 15 U/L Total Bilirubin 0.5 MG/DL Sodium Level 136 MEQ/L Potassium Level 3.3 MEQ/L Chloride Level 98 MEQ/L Carbon Dioxide Level 30.6 MEQ/L Anion Gap 7 MEQ/L Estimat Glomerular Filtration Rate 53 ML/MIN Lactic Acid Level 0.7 mmol/L Lipase 178 U/L Urine Color LIGHT-YELLOW Urine Turbidity CLEAR Urine pH 5.5 Urine Specific [place] 1.009 Urine Protein NEG mg/dL Urine Glucose (UA) NEG mg/dL Urine Ketones NEG mg/dL Urine Occult Blood NEG Urine Nitrite NEG Urine Bilirubin NEG Urine Urobilinogen LESS THAN 2.0 MG/DL Urine Leukocyte Esterase MOD Urine RBC LESS THAN 1 /hpf Urine WBC 13 /hpf Microscopic Urinalysis Comment CULTURE INDICATED MDM Medical Decision Making Medical Screen Exam Complete: Yes Emergency Medical Condition: Yes Medical Record Reviewed: Yes Differential Diagnosis IBS, obstruction, C. difficile colitis, diverticulitis Narrative Course 89-year-old female history for C. difficile colitis in early April presents with 4-5 days of lower abdominal cramping, soft and loose stools, similar to her previous instance of C. difficile colitis. Plan is for basic lab work, CT abdomen and pelvis. We will obtain a C. difficile PCR. The patient was placed in isolation pending the results. The patient developed some upper back pain while lying on the hard surface in the CT scan. On examination she has no vertebral tenderness to palpation. Morphine has yet to be administered and the patient will also be given some Norflex as this appears to be muscular pain. CT imaging has been reviewed: CONCLUSION: 1. Wall thickening involving the distal descending and proximal sigmoid colon as well as pericolic inflammatory changes suggestive of acute diverticulitis or colitis. No pericolic abscess is noted. 2. Multilevel spinal stenoses, degenerative changes and scoliosis of the lumbar spine. 3. Cardiomegaly. 4. Fibrotic scarring within the lung bases. The patient's lab work is reassuring with a WBC count of 6.8. Potassium is 3.3 , she was given oral potassium chloride. Urinalysis does reveal moderate leukocyte esterase and urine cultures currently pending. At this point in time I discussed the patient the option of going home with oral antibiotics to treat her diverticulitis with close follow-up with her primary care physician over the patient does not feel comfortable going home with her current symptoms and preferred to be admitted which, given her age and diagnosis, is reasonable. Therefore the patient will be administered IV ciprofloxacin and Flagyl. Diagnosis Primary Impression: Diverticulitis Qualified Codes: K57.92 - Diverticulitis of intestine, part unspecified, without perforation or abscess without bleeding Additional Impression: Pyuria Admitting Information Admitting Physician Requests: Aj Gray May 22, 2017 20:25
[2017-05-22] MEDS ORDERED: MORPHINE SULFATE 4 MG/ML INJ IV PUSH ONE (20:30)
[2017-05-22] MEDS ORDERED: ONDANSETRON HCL 4 MG/2 ML VIAL IVP ONE (20:30)
[2017-05-22 20:49] LABS: AUTOMATED NEUTROPHIL # 4.4 TH/MM3 (1.8-7.7); BASOPHIL % 0.7 % (0.0-2.0); EOSINOPHIL # 0.2 TH/MM3 (0-0.4); EOSINOPHIL % 2.6 % (0.0-4.0); HEMO FLAGS DIFF FINAL; LYMPH % 21.6 % (9.0-44.0); LYMPHOCYTE # 1.5 TH/MM3 (1.0-4.8); MEAN CELL VOLUME 91.4 FL (80.0-100.0); MEAN CORPUSCULAR HGB CONC 32.8 % (32.0-36.0); MONO % 11.1 % (0.0-8.0); PLATELET COUNT 302 TH/MM3 (150-450); RED BLOOD COUNT 4.05 MIL/MM3 (4.00-5.30); RED CELL DISTRIBUTION WIDTH 13.6 % (11.6-17.2); WHITE BLOOD COUNT 6.8 TH/MM3 (4.0-11.0)
[2017-05-22 21:03] LABS: ALT (GPT) 15 U/L (10-53); ANION GAP 7 MEQ/L (5-15); AST (GOT) 13 U/L (15-37); BICARBONATE 30.6 MEQ/L (21.0-32.0); BLOOD UREA NITROGEN 21 MG/DL (7-18); CHLORIDE 98 MEQ/L (98-107); GLOMERULAR FILTRATION RATE 53 ML/MIN (>89); POTASSIUM 3.3 MEQ/L (3.5-5.1); SODIUM (NA) 136 MEQ/L (136-145)
[2017-05-22 21:03] LABS: BLOOD, URINE NEG (NEG); COMMENT (UR) CULTURE INDICATED; CULTURE IF INDICATED CULTURE INDICATED; GLUCOSE,URINE NEG (NEG); KETONE, URINE NEG (NEG); NITRITE,URINE NEG (NEG); PH, URINE 5.5 (5.0-8.5); URINE COLOR LIGHT-YELLOW (YELLW/STRAW)
[2017-05-22 21:06] LABS: ALKALINE PHOSPHATASE 72 U/L (45-117); TOTAL BILIRUBIN ADULT 0.5 MG/DL (0.2-1.0)
[2017-05-22] MEDS ORDERED: POTASSIUM CHLORIDE 20 MEQ CONTROLLED RELEASE TAB PO ONE (21:30)
--- NOTE | 2017-05-22 21:40 | RADRPT ---
EXAM DATE/TIME: 05/22/2017 21:12 [facility] COMPARISON: No previous studies available for comparison. INDICATIONS : Patient complains of abdominal pain, diarrhea for four days. IV CONTRAST: 75 cc Omnipaque 350 (iohexol) IV ORAL CONTRAST: No oral contrast ingested. RADIATION DOSE: 6.91 CTDIvol (mGy) MEDICAL HISTORY : Hypertension. C-diff SURGICAL HISTORY : Hysterectomy. ENCOUNTER: Initial ACUITY: 4 - 6 days PAIN SCALE: 4/10 LOCATION: Abdomen TECHNIQUE: Volumetric scanning of the abdomen and pelvis was performed. Using automated exposure control and ad justment of the mA and/or kV according to patient size, radiation dose was kept as low as reasonably achievable to obtain optimal diagnostic quality images. DICOM format image data is available electro nically for review and comparison. FINDINGS: There is evidence of wall thickening involving the distal descending and proximal sigmoid colon as we ll as mild pericolic inflammatory changes suggestive of acute diverticulitis or colitis. No pericoli c abscess is noted. The heart is enlarged. Bibasilar fibrotic scarring is noted. The liver is unremarkable. No focal hepatic mass or biliary ductal dilatation is noted. The gallbla dder is unremarkable. The spleen is normal. The pancreas is normal. The adrenal glands are unremar kable. The kidneys enhance briskly and demonstrate no evidence of focal mass, stone or hydronephrosi s. The abdominal aorta is calcified but is not aneurysmally dilated. The inferior vena cava is norm al. No paraaortic, retroperitoneal, or mesenteric lymphadenopathy is noted. Degenerative changes and scoliosis of the thoracolumbar spine are noted. Multilevel significant spinal stenoses are noted wit hin the lumbar spine. The urinary bladder is unremarkable. No ascites is noted. No pelvic lymphade nopathy is noted. CONCLUSION: 1. Wall thickening involving the distal descending and proximal sigmoid colon as well as pericolic in flammatory changes suggestive of acute diverticulitis or colitis. No pericolic abscess is noted. 2. Multilevel spinal stenoses, degenerative changes and scoliosis of the lumbar spine. 3. Cardiomegaly. 4. Fibrotic scarring within the lung bases. Cesar Gordillo MD on May 22, 2017 at 21:28 Board Certified Radiologist. This report was verified electronically.
[2017-05-22] MEDS ORDERED: ORPHENADRINE INJ 60 MG/2 ML AMP IM ONE (21:45)
[2017-05-22] MEDS ORDERED: SODIUM CHLOR 0.9% 1000 ML INJ 1,000 ML IV SCH (21:50)
[2017-05-22] MEDS ORDERED: metroNIDAZOLE 500 MG INJ 100 ML IV ONE (22:00)
[2017-05-22] MEDS ORDERED: CIPROFLOXACIN 400 MG PREMIX 200 ML IV ONE (22:00)
--- NOTE | 2017-05-22 22:43 | HHI.HP ---
[facility] Service Family Medicine Primary Care Physician Celso Mariano MD Admission Diagnosis diverticulitis, pyuria Diagnoses: International Travel<30 Days: No Contact w/Intl Traveler<30days: No Known Affected Area: No History of Present Illness Mrs. Vickers is a [address] Mariano with PMH of recent C Diff colitis, HTN, asthma who presents to [place] ED in the company of her with diarrhea and abdominal pain. Patient states that her diarrhea began last Sunday evening when she had 3 loose BM within 2 hours. Patient states that since Sunday, she has had loose bowel movements and abdominal pain. Patient describes her abdominal pain as "gas pains;" she also reports nausea. Patient states that she took Gas-x for pain but that it was effective in reducing diarrhea symptoms. Patient estimates that overall, since Sunday, she has had ~ 4 bowel movements per day. Patient does not report fever or chills. Patient reports some pain after eating which is followed by bowel movements and/or flatus. Patient does not report dysuria but states that it is "just a little" sensitive when she is urinating while having a bowel movement. Patient does not report any knowledge of blood in her stools. Patient does not report LAZO, vision changes, peripheral numbness/tingling, SOB, or chest pain. Patient reports that she generally ambulates well using her walker and at she has not recently fallen. Interval History: CT obtained in ED which suggested colitis. Patient started empirically on Flagyl and Ciprofloxacin. Patient reports worsening mid-back pain after CT scanner which was refractory to Morphine and Norflex; patient requests pain treatment and consideration for XR imaging tomorrow if not improved. Review of Systems Constitutional: DENIES: Fever, Chills Eyes: DENIES: Blurred vision, Vision loss Ears, nose, mouth, throat: DENIES: Nasal discharge, Running Nose Respiratory: DENIES: Cough, Wheezing Cardiovascular: DENIES: Chest pain, Palpitations Gastrointestinal: COMPLAINS OF: Abdominal pain, Diarrhea Genitourinary: DENIES: Urgency, Dysuria Integumentary: DENIES: Pruritus, Rash Neurologic: DENIES: Abnormal gait, Headache Psychiatric: DENIES: Anxiety, Confusion Past Family Social History Past Medical History Per Patient asthma Cdiff legally blind HTN Per EMR - Hypertension - Asthma - PUD (no hemorrhage or perforation) - 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 and limited visual acuity - osteoarthritis - compression fractures of T11, L1 - LS spinal stenosis - osteoporosis - hospitalized 01/2016 for sinus bradycardia, 1 degree AV block, dizziness; beta -aries therapy stopped Past Surgical History Per Patient No surgeries for prolonged duration with exception of 2 vertebral repairs >9 yrs ago and prior Per EMR - SHY with BSO (benign disease process) - repair of deviated septum - arthroscopic knee surgery Reported Medications Reported Meds & Active Scripts Active Xanax (Alprazolam) 0.5 Mg Tab 1-2 Tab PO HS PRN Advair Diskus Inh (Fluticasone-Salmeterol Inh) 500-50 Mcg/Blist Aer 1 Puff INH BID Rinse mouth after use. Losartan-Hydrochlorothiazide 100-12.5 Mg Tab 1 Tab PO DAILY Reported Imodium A-D (Loperamide HCl) 2 Mg Capsule 2 Mg PO DIRECTED PRN One capsule after each loose stool. Not to exceed 8 tablets per day. Tums (Calcium Carbonate (Antacid)) 500 Mg Chew 500 Mg CHEW PRN D3-1000 (Cholecalciferol) 1,000 Unit Cap 1 Cap PO DAILY Ibuprofen 400 Mg Tab 400 Mg PO HS 5 Days Omeprazole 40 Mg Cap 40 Mg PO DAILY Allergies: Coded Allergies: Sulfa (Sulfonamide Antibiotics) (Unverified Allergy, Severe, 05/22/17) epinephrine (Unverified Allergy, Severe, 05/22/17) Family History per EMR Mother- CHF Father- [place] Father- Bladder cancer Social History Per EMR Marrital Status: Living Situation: living with in independent apartment at [facility] - previously was living in [place] Education: college degree Work history: clerical (retired) Tobacco: none Alcohol: none Illicit drug use: none Physical Exam Vital Signs Vital Signs Date Time Temp Pulse Resp B/P (MAP) Pulse Ox O2 Delivery O2 Flow Rate FiO2 05/22/17 19:40 98.3 81 16 177/77 (110) 96 Room Air Physical Exam CONSTITUTIONAL/GEN: normally nourished, in NAD. EYES: conjunctiva normal, PERRLA. Cataracts present. EOM grossly normal ENT: Mouth and pharynx normal. NECK: No appreciated thyromegaly or lymphadenopathy SKIN: color normal, no rashes noted. LUNGS: Normal rate; clear to auscultation bilaterally CARDIOVASCULAR: Regular rate and rhythm without murmurs. Trace edema bilaterally. GI/ABD: soft without masses, without organomegaly. Non-tender to palpation. HEME/LYMPH: no bruising, petechia or significant adenopathy MUSC: Patient able to move upper and lower extremities; ROM not assessed. No calf asymmetry. Back: No pain to palpation of cervical, thoracic, or lumbar spinous processes NEURO: No focal deficits. Grossly normal cranial nerves; grossly normal peripheral motor/sensory function PSYCH/MENTAL STATUS: Alert and oriented x 3. Laboratory Laboratory Tests Test 05/22/17 20:27 05/22/17 20:48 White Blood Count 6.8 Red Blood Count 4.05 Hemoglobin 12.1 Hematocrit 37.0 Mean Corpuscular Volume 91.4 Mean Corpuscular Hemoglobin 30.0 Mean Corpuscular Hemoglobin Concent 32.8 Red Cell Distribution Width 13.6 Platelet Count 302 Mean Platelet Volume 7.9 Neutrophils (%) (Auto) 64.0 Lymphocytes (%) (Auto) 21.6 Monocytes (%) (Auto) 11.1 Eosinophils (%) (Auto) 2.6 Basophils (%) (Auto) 0.7 Neutrophils # (Auto) 4.4 Lymphocytes # (Auto) 1.5 Monocytes # (Auto) 0.8 Eosinophils # (Auto) 0.2 Basophils # (Auto) 0.0 CBC Comment DIFF FINAL Differential Comment Blood Urea Nitrogen 21 Creatinine 0.98 Random Glucose 93 Total Protein 7.6 Albumin 3.5 Calcium Level 9.7 Alkaline Phosphatase 72 Aspartate Amino Transf (AST/SGOT) 13 Alanine Aminotransferase (ALT/SGPT) 15 Total Bilirubin 0.5 Sodium Level 136 Potassium Level 3.3 Chloride Level 98 Carbon Dioxide Level 30.6 Anion Gap 7 Estimat Glomerular Filtration Rate 53 Lactic Acid Level 0.7 Lipase 178 Urine Color LIGHT-YELLOW Urine Turbidity CLEAR Urine pH 5.5 Urine Specific [place] 1.009 Urine Protein NEG Urine Glucose (UA) NEG Urine Ketones NEG Urine Occult Blood NEG Urine Nitrite NEG Urine Bilirubin NEG Urine Urobilinogen LESS THAN 2.0 Urine Leukocyte Esterase MOD Urine RBC LESS THAN 1 Urine WBC 13 Microscopic Urinalysis Comment CULTURE INDICATED Date/Time Source Procedure Growth Status 05/22/17 20:48 Urine Random Urine Urine Culture Pending Received Result Diagram: 05/22/17202605/22/172026 Imaging Last Impressions Abdomen/Pelvis CT 05/22/172021 Signed Impressions: Service Date/Time: Monday, May 22, 2017 21:12 - CONCLUSION: 1. Wall thickening involving the distal descending and proximal sigmoid colon as well as pericolic inflammatory changes suggestive of acute diverticulitis or colitis. No pericolic abscess is noted. 2. Multilevel spinal stenoses, degenerative changes and scoliosis of the lumbar spine. 3. Cardiomegaly. 4. Fibrotic scarring within the lung bases. Cesar Gordillo MD Capannie VTE Risk Assessment Caprini VTE Risk Assessment: Mod/High Risk (score >= 2) Caprini Risk Assessment Model Point Value = 1 Point Value = 2 Point Value = 3 Point Value = 5 Age 41-60 Minor surgery BMI > 25 kg/m2 Swollen legs Varicose veins or History of unexplained or recurrent spontaneous Oral contraceptives or hormone replacement Sepsis (< 1 month) Serious lung disease, including pneumonia (< 1 month) Abnormal pulmonary function Acute myocardial infarction Congestive heart failure (< 1 month) History of inflammatory bowel disease Medical patient at bed rest Age 61-74 Arthroscopic surgery Major open surgery (> 45 min) Laparoscopic surgery (> 45 min) Malignancy Confined to bed (> 72 hours) Immobilizing plaster cast Central venous access Age >= 75 History of VTE Family history of VTE Factor V Leiden Prothrombin [id number] Lupus anticoagulant Anticardiolipin antibodies Elevated serum homocysteine Heparin-induced thrombocytopenia Other congenital or acquired thrombophilia Stroke (< 1 month) Elective arthroplasty Hip, pelvis, or leg fracture Acute spinal cord injury (< 1 month) Prophylaxis Regimen Total Risk Factor Score Risk Level Prophylaxis Regimen 0-1 Low Early ambulation 2 Moderate Order ONE of the following: *Sequential Compression Device (SCD) *Heparin 5000 units SQ BID 3-4 Higher Order ONE of the following medications: *Heparin 5000 units SQ TID *Enoxaparin/Lovenox 40 mg SQ daily (WT < 150 kg, CrCl > 30 mL/min) *Enoxaparin/Lovenox 30 mg SQ daily (WT < 150 kg, CrCl > 10-29 mL/min) *Enoxaparin/Lovenox 30 mg SQ BID (WT < 150 kg, CrCl > 30 mL/min) AND/OR *Sequential Compression Device (SCD) 5 or more Highest Order ONE of the following medications: *Heparin 5000 units SQ TID (Preferred with Epidurals) *Enoxaparin/Lovenox 40 mg SQ daily (WT < 150 kg, CrCl > 30 mL/min) *Enoxaparin/Lovenox 30 mg SQ daily (WT < 150 kg, CrCl > 10-29 mL/min) *Enoxaparin/Lovenox 30 mg SQ BID (WT < 150 kg, CrCl > 30 mL/min) AND *Sequential Compression Device (SCD) Assessment and Plan Assessment and Plan Mrs. Vickers is a 89 yo F with: Code Status Full Code Problem List: (1) Diarrhea ICD Codes: R19.7 - Diarrhea Status: Acute Plan: Impression: 4 days of diarrhea and abdominal pain in association with recent C diff infection Abodmen/Pelvis CT- wall thickening involving distal descending and proximal sigmoid colon as well as pericolic inflammatory changes suggestive of acute diverticulitis or colitis. No pericolic abscess is noted. Multilevel spinal stenosis, degenerative changes, and scoliosis of the lumbar spine. Cardiomegaly. Fibrotic scarring within the lung bases -Clear liquid diet for possible diverticulitis -Maintenance NS -C diff PCR, Hemoccult pending -Continue Ciprofloxacin 400mg BID -Continue Flagyl 500mg TID -Morphine 2 mg every 3 hours as needed for severe pain (2) History of Clostridium difficile colitis ICD Codes: Z86.19 - Personal history of other infectious and parasitic diseases Plan: Impression: Per EMR, patient recently underwent treatment from 04/06/2017 to 04/19/2017 after positive C diff PCR 04/05/2017 No leukocytosis on admission today -Will repeat C Diff PCR -Continue to monitor CBC, metabolic panel -Will continue empiric colitis treatment -Per recommendation by Dr. Mariano' clinic note, will hold home Omeprazole 40mg daily and start H2 aries (3) HYPERTENSION NOS Status: Chronic Plan: Impression: SBP in 170's on admission; on home Losartan/ Hydrochlorothiazide -Continue home Losartan/Hydrochlorothiazide -Hydralazine 10mg PRN q8hrs for SBP >160 (4) Back pain ICD Codes: M54.9 - Dorsalgia, unspecified Plan: Impression: Significant back pain per patient after CT scan. History of osteoporosis per patient. I was unable to read DEXA in EMR from 2010 -s/p Norflex and Morphine in ED for pain control -Discussed with patient; she defers x-ray at this time due to fear of additional pain. Patient agreeable to obtaining thoracic XR imaging tomorrow if pain persistent -Will try Prednisone 40mg x1 for possible inflammation of arthritic process and will re-evaluate in the morning (5) Asthma ICD Codes: J45.909 - Asthma Status: Chronic Plan: Impression: Lungs clear on admission -Will continue home Symbicort -Will give PRN Albuterol (6) DVT Prophylaxis Plan: -Lovenox 40mg daily -Bilateral SCD's (7) Fluids, Electrolytes, and Nutrition Plan: Fluids: Will give maintenance NS Diet: Will give clear liquids due to colitis on CT Electrolytes: Will monitor and replete as needed Physician Certification 2 Midnight Certification Type: Admission for Inpatient Services Order for Inpatient Services The services are ordered in accordance with Medicare regulations or non- Medicare payer requirements, as applicable. In the case of services not specified as inpatient-only, they are appropriately provided as inpatient services in accordance with the 2-midnight benchmark. Estimated LOS (days): 3 days is the estimated time the patient will need to remain in the hospital, assuming treatment plan goals are met and no additional complications. Post-Hospital Plan: Home Problem Qualifiers (1) Diarrhea: Qualified Codes: A09 - Infectious gastroenteritis and colitis, unspecified (2) Back pain: Qualified Codes: M54.9 - Dorsalgia, unspecified Ton Mckenna MD, R3 May 22, 2017 22:43
[2017-05-22] MEDS ORDERED: ACETAMINOPHEN 325 MG TAB PO PRN (23:15)
[2017-05-22] MEDS ORDERED: NALOXONE HCL 0.4 MG/ML AMP IV PUSH PRN (23:15)
[2017-05-22] MEDS ORDERED: SODIUM CHLORIDE 0.9% FLUSH 10 ML FLUSH IV FLUSH PRN (23:15)
[2017-05-22] MEDS ORDERED: predniSONE 20 MG TAB PO ONE (23:15)
[2017-05-22] MEDS ORDERED: LACTULOSE SYRUP 20 GM/30 ML CUP PO PRN (23:15)
[2017-05-22] MEDS ORDERED: SENNOSIDES 8.6 MG TAB PO PRN (23:15)
[2017-05-22] MEDS ORDERED: MAGNESIUM HYDROXIDE SUSP 30 ML CUP PO PRN (23:15)
[2017-05-22] MEDS ORDERED: BISACODYL 10 MG SUPP RECTAL PRN (23:15)
[2017-05-22] MEDS ORDERED: ONDANSETRON HCL 4 MG/2 ML VIAL IVP PRN (23:15)
[2017-05-22 23:30] VITALS: O2SAT 100
[2017-05-22] MEDS ORDERED: ACETAMINOPHEN 500 MG CPLT PO PRN (23:30)
[2017-05-22] MEDS ORDERED: MORPHINE SULFATE 4 MG/ML INJ IV PUSH PRN (23:30)
[2017-05-22] MEDS ORDERED: ALPRAZolam 0.5 MG TAB PO PRN (23:30)
[2017-05-22] MEDS ORDERED: hydrALAZINE HCL 10 MG TAB PO PRN (23:30)
[2017-05-22] MEDS: NS + KCL 20 MEQ INJ 1,000 ML IV SCH (23:47)
[2017-05-22] MEDS: ENOXAPARIN SODIUM 40 MG/0.4 ML SYRINGE SQ SCH (23:47)
[2017-05-23 01:57] VITALS: BP 130/64; PULSE 72; RESP 16; TEMP 97.6; O2SAT 99
[2017-05-23 05:14] LABS: AUTOMATED NEUTROPHIL # 5.9 TH/MM3 (1.8-7.7); BASOPHIL % 0.5 % (0.0-2.0); EOSINOPHIL # 0.1 TH/MM3 (0-0.4); EOSINOPHIL % 0.9 % (0.0-4.0); HEMATOCRIT 35.3 % (35.0-46.0); HEMO FLAGS DIFF FINAL; LYMPH % 6.3 % (9.0-44.0); LYMPHOCYTE # 0.4 TH/MM3 (1.0-4.8); MEAN CELL VOLUME 93.5 FL (80.0-100.0); MEAN CORPUSCULAR HEMOGLOBIN 30.7 PG (27.0-34.0); MEAN CORPUSCULAR HGB CONC 32.8 % (32.0-36.0); MONO % 2.1 % (0.0-8.0); NEUT % 90.2 % (16.0-70.0); PLATELET COUNT 250 TH/MM3 (150-450); RED BLOOD COUNT 3.78 MIL/MM3 (4.00-5.30); RED CELL DISTRIBUTION WIDTH 13.7 % (11.6-17.2); WHITE BLOOD COUNT 6.5 TH/MM3 (4.0-11.0)
[2017-05-23 05:22] LABS: BICARBONATE 27.9 MEQ/L (21.0-32.0)
[2017-05-23] MEDS: metroNIDAZOLE 500 MG INJ 100 ML IV SCH ×2 (05:48→15:58)
[2017-05-23 08:28] VITALS: BP 170/77; PULSE 91; RESP 18; TEMP 97.7; O2SAT 98
[2017-05-23] MEDS: HYDROCHLOROTHIAZIDE 12.5 MG CAP PO SCH (08:49)
[2017-05-23] MEDS: BUDESONIDE-FORMOTEROL 160/4.5 MCG INHALER INH SCH ×2 (08:49→20:01)
[2017-05-23] MEDS: LOSARTAN 50 MG TAB PO SCH (08:50)
[2017-05-23] MEDS: SODIUM CHLORIDE 0.9% FLUSH 10 ML FLUSH IV FLUSH SCH ×2 (08:50→20:03)
[2017-05-23] MEDS: CHOLECALCIFEROL (VIT D3) 1000 UNIT TAB PO SCH (08:50)
[2017-05-23] MEDS: NS + KCL 20 MEQ INJ 1,000 ML IV SCH ×2 (08:53→16:00)
[2017-05-23] MEDS ORDERED: DOCUSATE SODIUM 50 MG/SENNA 8.6 MG TAB PO SCH (09:00)
[2017-05-23] MEDS ORDERED: NON-FORMULARY DRUG (Losartan-Hydrochlorothiazide 1 TAB) PO SCH (09:00)
[2017-05-23] MEDS ORDERED: FAMOTIDINE 20 MG TAB PO SCH (09:00)
--- NOTE | 2017-05-23 09:25 | HHI.FPPN ---
Subjective Remarks Joyce Vickers is an 89yo lady with h/o C Diff Colitis in 04/2017 admitted for diarrhea and abdominal pain. Diarrhea began roughly 4-5 days ago, with 3 loose BMs within 2 hours. She has continued to have loose BMs associated with abdominal pain described as "gas pains". Diarrhea improved with Gas-X but not abdominal pain. + nausea. No vomiting. No fevers, no chills. For further details , please see resident H&P. Yesterday, she reports increase in her back pain with lying on CT scanner. This morning, she has not had a bowel movement. She is tolerating clear liquids. She denies abdominal pain. She declined x-ray due to back pain and difficulty moving. PT has been ordered. ROS: No diarrhea, no nausea, no vomiting. + back pain. No fevers. All other systems reviewed are negative. PMH/PSxH/SocHx/FamHx: Per resident H&P. Significant for: C Diff colitis, 04/2017 with recent completion of oral flagyl; asthma, HTN, Peptic ulcer disease, osteoporosis. SHY BSO, knee arthroscopy, deviated septum repair. Mother with CHF , father with MT and Bladder CA. , lives in independent living at [facility]. PCP is Dr. Mariano. No tobacco, alcohol, or recreational drug use. Objective Vitals Vital Signs Date Time Temp Pulse Resp B/P (MAP) Pulse Ox O2 Delivery O2 Flow Rate FiO2 05/23/17 08:28 97.7 91 18 170/77 (108) 98 05/23/17 01:57 97.6 72 16 130/64 (86) 99 05/22/17 23:30 100 Nasal Cannula 2.00 05/22/17 19:40 98.3 81 16 177/77 (110) 96 Room Air I/O 05/22/17 05/22/17 05/22/17 05/23/17 05/23/17 05/23/17 07:00 15:00 23:00 07:00 15:00 23:00 Intake Total 1500 ml 600 ml Balance 1500 ml 600 ml Intake IV Total 1500 ml 600 ml # Voids 1 Result Diagram: 05/23/1733105/23/17331 Objective Remarks GENERAL: in NAD, no resp distress, nontoxic. Eating clear liquids during exam/ interview. HEENT: NCAT, EOMI, no scleral icterus. No conjunctival injection. MMM. NECK: Supple, no meningeal signs. CV: RRR, S1 S2. 1-2/6 systolic murmur CHEST/PULM: CTAB, no crackles, no wheezes ABD/GI: +BS, soft, nontender, nondistended EXT: 2+ DP Pulses. No calf tenderness. Trace pitting edema. NEURO: Awake, alert. normal muscle tone. SKIN: No rashes, no jaundice. Scab on left anterior bauman, measuring 0.8cm in diameter PSYCH: Mood and affect are appropriate. Speech fluent. Does not appear to respond to internal stimuli. : No CVAT A/P Assessment and Plan Mrs. Vickers is a 89 yo F with C Diff colitis, first recurrence Attending Attestation Patient seen, examined and discussed with resident team. Problem List: (1) Recurrent colitis due to Clostridium difficile ICD Codes: A04.7 - Enterocolitis due to Clostridium difficile Status: Acute Plan: Mild. Patient has had one bowel movement since arriving to hospital. WBC count is reassuring. Afebrile. No abdominal pain. Will start oral flagyl (had been receiving IV Cipro and flagyl for possible diverticulitis). Abdomen/Pelvis CT 05/22/17- wall thickening involving distal descending and proximal sigmoid colon as well as pericolic inflammatory changes suggestive of acute diverticulitis or colitis. No pericolic abscess is noted. Multilevel spinal stenosis, degenerative changes, and scoliosis of the lumbar spine. Cardiomegaly. Fibrotic scarring within the lung bases (2) HYPERTENSION NOS Status: Chronic Plan: Blood pressure elevated on admission; on home Losartan/ Hydrochlorothiazide -Continue home Losartan/Hydrochlorothiazide -Hydralazine 10mg PRN q8hrs for SBP >160 (3) Back pain ICD Codes: M54.9 - Dorsalgia, unspecified Status: Acute Plan: Patient experienced back pain while on CT scanner. Reviewed with patient that CT scan negative for acute pathology. She has known osteoporosis, but no evidence of fracture seen on CT. Pt has worked with PT today; recommendations reviewed. Morphine PRN for pain; last use was 219 this AM. (4) Asthma ICD Codes: J45.909 - Asthma Status: Chronic Plan: Lungs clear on exam. Pt uses Advair at home, which was converted to Symbicort by pharmacy while in house. (5) Pyuria ICD Codes: N39.0 - Urinary tract infection, site not specified Status: Acute Plan: Urine culture pending. Pt did receive IV cipro x 2 doses. (6) Hypokalemia ICD Codes: E87.6 - Hypokalemia Status: Resolved Plan: Mild. Asymptomatic. Likely secondary to previous diarrhea. Now resolved. Problem Qualifiers (1) Back pain: Qualified Codes: M54.9 - Dorsalgia, unspecified Selina Wolfe MD May 23, 2017 09:25
[2017-05-23] MEDS ORDERED: CIPROFLOXACIN 400 MG PREMIX 200 ML IV SCH (10:00)
[2017-05-23 15:04] VITALS: BP 141/60; PULSE 70; RESP 20; TEMP 98.1; O2SAT 100
[2017-05-23 15:16] LABS: C. DIFF EPI 027 PRESUMPTIVE NEGATIVE (NEGATIVE)
[2017-05-23] MEDS ORDERED: ACETAMINOPHEN/HYDROcodone 325 MG/7.5 MG TAB PO PRN (17:45)
[2017-05-23] MEDS ORDERED: ACETAMINOPHEN/HYDROcodone 325 MG/5 MG TAB PO PRN (17:45)
[2017-05-23] MEDS ORDERED: PILL SPLITTER OTHER PRN (18:15)
[2017-05-23 19:34] VITALS: BP 156/69; PULSE 70; RESP 18; TEMP 97.9; O2SAT 99
[2017-05-23] MEDS: FAMOTIDINE 20 MG TAB PO SCH (20:03)
--- NOTE | 2017-05-23 20:46 | EKG ---
Date Performed: 05/23/2017 Time Performed: 01:31:09 PTAGE: 89 years EKG: Sinus rhythm WITH FIRST DEGREE AV BLOCK MARKED LEFT AXIS DEVIATION LEFT BUNDLE BRANCH BLOCK ABNORMAL ECG PREVIOUS TRACING : 01/13/2016 12.33 compared to the previous EKG left bundle branch block is n ew DOCTOR: Enmanuel Cochran Interpretating Date/Time 05/23/2017 20:43:14
[2017-05-23] MEDS ORDERED: CYCLOBENZAPRINE HCL 10 MG TAB PO SCH (21:00)
[2017-05-23 23:35] VITALS: BP 140/65; PULSE 71; RESP 18; TEMP 97.8; O2SAT 98
[2017-05-24] MEDS: ENOXAPARIN SODIUM 40 MG/0.4 ML SYRINGE SQ SCH (00:18)
[2017-05-24] MEDS: metroNIDAZOLE 500 MG TAB PO SCH ×3 (00:18→13:54)
[2017-05-24 03:26] VITALS: BP 139/67; PULSE 70; RESP 18; TEMP 97.9; O2SAT 98
[2017-05-24] MEDS: NS + KCL 20 MEQ INJ 1,000 ML IV SCH (06:13)
[2017-05-24 07:22] VITALS: O2SAT 95
[2017-05-24 07:30] LABS: HEMATOCRIT 33.5 % (35.0-46.0); MEAN CELL VOLUME 92.6 FL (80.0-100.0); MEAN CORPUSCULAR HEMOGLOBIN 30.1 PG (27.0-34.0); MEAN CORPUSCULAR HGB CONC 32.5 % (32.0-36.0); PLATELET COUNT 258 TH/MM3 (150-450); RED BLOOD COUNT 3.62 MIL/MM3 (4.00-5.30); RED CELL DISTRIBUTION WIDTH 14.2 % (11.6-17.2); REVIEW FLAG FINAL; WHITE BLOOD COUNT 7.3 TH/MM3 (4.0-11.0)
[2017-05-24 07:32] VITALS: BP 145/65; PULSE 64; RESP 20; TEMP 98.1; O2SAT 97
[2017-05-24 07:58] LABS: BICARBONATE 26.8 MEQ/L (21.0-32.0); POTASSIUM 3.9 MEQ/L (3.5-5.1)
[2017-05-24] MEDS: SODIUM CHLORIDE 0.9% FLUSH 10 ML FLUSH IV FLUSH SCH (08:25)
[2017-05-24] MEDS: LOSARTAN 50 MG TAB PO SCH (08:26)
[2017-05-24] MEDS: BUDESONIDE-FORMOTEROL 160/4.5 MCG INHALER INH SCH (08:26)
[2017-05-24] MEDS: FAMOTIDINE 20 MG TAB PO SCH (08:27)
[2017-05-24] MEDS: HYDROCHLOROTHIAZIDE 12.5 MG CAP PO SCH (08:27)
[2017-05-24] MEDS: CHOLECALCIFEROL (VIT D3) 1000 UNIT TAB PO SCH (08:28)
[2017-05-24 10:43] VITALS: BP 162/69; PULSE 72; RESP 18; TEMP 97.6; O2SAT 99
[2017-05-24] MEDS ORDERED: METR-1 PO ×4 (10:48→10:58)
[2017-05-24] MEDS ORDERED: HYDR-3516 PO ×3 (10:48→10:58)
--- NOTE | 2017-05-24 11:06 | HHI.FF ---
Face to Face Verification Diagnosis: (1) C. difficile diarrhea (2) Low back pain Physical Therapy Order: Evaluate and Treat I have seen patient Joyce Vickers on 05/24/17. My clinical findings support the need for the requested home health care services because: Ltd mobility - disease progression I certify that my clinical findings support that this patient is homebound because: Unsteady gait/balance Hammad Pinon MD R1 May 24, 2017 10:23
--- NOTE | 2017-05-24 11:08 | HHI.FPPN ---
Subjective Remarks Ms. Vickers was seen this AM on rounds. No acute events overnight and vitals were stable. Patient has only had 1 BM since admission and does not complain of abdominal pain today. She continues to complain of low back pain but it is tolerable today. She feels comfortable going home today and is open to working with PT. (Hammad Pinon MD R1) Objective Vitals Vital Signs Date Time Temp Pulse Resp B/P (MAP) Pulse Ox O2 Delivery O2 Flow Rate FiO2 05/24/17 07:32 98.1 64 20 145/65 (91) 97 05/24/17 07:22 95 Nasal Cannula 2.00 05/24/17 03:26 97.9 70 18 139/67 (91) 98 05/23/17 23:35 97.8 71 18 140/65 (90) 98 05/23/17 19:34 97.9 70 18 156/69 (98) 99 05/23/17 15:04 98.1 70 20 141/60 (87) 100 I/O 05/23/17 05/23/17 05/23/17 05/24/17 05/24/17 05/24/17 07:00 15:00 23:00 07:00 15:00 23:00 Intake Total 1500 ml 600 ml 1515 ml Balance 1500 ml 600 ml 1515 ml Intake Oral Supplement 60 ml IV Total 1500 ml 600 ml 1455 ml # Voids 1 (Hammad Pinon MD R1) Result Diagram: 05/24/17 0632 05/24/17 0632 Objective Remarks GENERAL: Pt seen sitting on toilet in NAD, no resp distress, nontoxic. HEENT: NCAT, EOMI, no scleral icterus. No conjunctival injection. MMM. NECK: Supple, no meningeal signs. CV: RRR, S1 S2. 1-2/6 systolic murmur CHEST/PULM: CTAB, no crackles, no wheezes ABD/GI: +BS, soft, nontender, nondistended EXT: 2+ DP Pulses. No calf tenderness. Trace pitting edema. NEURO: Awake, alert. normal muscle tone. No TTP along spine SKIN: No rashes, no jaundice. PSYCH: Mood and affect are appropriate. Speech fluent. Does not appear to respond to internal stimuli. (Hammad Pinon MD R1) A/P Assessment and Plan Mrs. Vickers is a 89 yo F with C Diff colitis, first recurrence. Discharge Planning Patient is safe for discharge today. Will go home on 13 day course of Flagyl as well as a 10 dose prescription of [place] 5 (Hammad Pinon MD R1) Attending Attestation Patient seen, examined, and discussed with Dr. Pinon. I agree with assessment and management as documented and discussed with me. Pt reports no further bowel movements. She feels back pain is still the same; did not require any PRN pain medications overnight. Discharge home with home health PT. (Selina Wolfe MD) Problem List: (1) Recurrent colitis due to Clostridium difficile ICD Codes: A04.7 - Enterocolitis due to Clostridium difficile Status: Acute Plan: Mild. Patient has had one bowel movement since arriving to hospital. WBC count is reassuring. Afebrile. No abdominal pain. Started oral flagyl on 05/23. Received 2 doses prior to discharge Abdomen/Pelvis CT 05/22/17- wall thickening involving distal descending and proximal sigmoid colon as well as pericolic inflammatory changes suggestive of acute diverticulitis or colitis. No pericolic abscess is noted. Multilevel spinal stenosis, degenerative changes, and scoliosis of the lumbar spine. Cardiomegaly. Fibrotic scarring within the lung bases (2) HYPERTENSION NOS Status: Chronic Plan: Blood pressure elevated on admission; on home Losartan/ Hydrochlorothiazide -Continue home Losartan/Hydrochlorothiazide -Hydralazine 10mg PRN q8hrs for SBP >160 (3) Back pain ICD Codes: M54.9 - Dorsalgia, unspecified Status: Acute Plan: Patient experienced back pain while on CT scanner. Reviewed with patient that CT scan negative for acute pathology. She has known osteoporosis, but no evidence of fracture seen on CT. Pt has worked with PT today; recommends home health with PT Required no pain medicine overnight, discussed with patient and she is willing to work with PT at home. (4) Asthma ICD Codes: J45.909 - Asthma Status: Chronic Plan: Lungs clear on exam. Pt uses Advair at home, which was converted to Symbicort by pharmacy while in house. (5) Pyuria ICD Codes: N39.0 - Urinary tract infection, site not specified Status: Acute Plan: Urine culture NGTD Pt did receive IV cipro x 2 doses in ED (6) Hypokalemia ICD Codes: E87.6 - Hypokalemia Status: Resolved Plan: Mild. Asymptomatic. Likely secondary to previous diarrhea. Now resolved. (Hammad Pinon MD R1) Problem Qualifiers (1) Back pain: Qualified Codes: M54.9 - Dorsalgia, unspecified Hammad Pinon MD R1 May 24, 2017 10:43 Selina Wolfe MD May 24, 2017 20:41
--- NOTE | 2017-05-24 11:08 | HHI.DS ---
Discharge Summary Admission Date May 22, 2017 at 21:59 Admitting Diagnosis diverticulitis, pyuria (1) Recurrent colitis due to Clostridium difficile Diagnosis: Principal Plan: Mild. Patient has had one bowel movement since arriving to hospital. WBC count is reassuring. Afebrile. No abdominal pain. Will start oral flagyl (had been receiving IV Cipro and flagyl for possible diverticulitis). Abdomen/Pelvis CT 05/22/17- wall thickening involving distal descending and proximal sigmoid colon as well as pericolic inflammatory changes suggestive of acute diverticulitis or colitis. No pericolic abscess is noted. Multilevel spinal stenosis, degenerative changes, and scoliosis of the lumbar spine. Cardiomegaly. Fibrotic scarring within the lung bases ICD Codes: A04.7 - Enterocolitis due to Clostridium difficile Status: Acute (2) Back pain Diagnosis: Secondary Plan: Patient experienced back pain while on CT scanner. Reviewed with patient that CT scan negative for acute pathology. She has known osteoporosis, but no evidence of fracture seen on CT. Pt has worked with PT today; recommendations reviewed. Morphine PRN for pain; last use was 0220 this AM. ICD Codes: M54.9 - Dorsalgia, unspecified Status: Acute (3) Pyuria Plan: Urine culture pending. Pt did receive IV cipro x 2 doses. ICD Codes: N39.0 - Urinary tract infection, site not specified Status: Acute Brief History Mrs. Vcikers is a [address] Mariano with PMH of recent C Diff colitis, HTN, asthma who presents to [facility] in the company of her with diarrhea and abdominal pain. Patient states that her diarrhea began last Sunday evening when she had 3 loose BM within 2 hours. Patient states that since Sunday, she has had loose bowel movements and abdominal pain. Patient describes her abdominal pain as "gas pains;" she also reports nausea. Patient states that she took Gas-x for pain but that it was effective in reducing diarrhea symptoms. Patient estimates that overall, since Sunday, she has had ~ 4 bowel movements per day. Patient does not report fever or chills. Patient reports some pain after eating which is followed by bowel movements and/or flatus. Patient does not report dysuria but states that it is "just a little" sensitive when she is urinating while having a bowel movement. Patient does not report any knowledge of blood in her stools. Patient does not report LAZO, vision changes, peripheral numbness/tingling, SOB, or chest pain. Patient reports that she generally ambulates well using her walker and at she has not recently fallen. CBC/BMP: 05/24/17 0632 05/24/17 0632 Significant Findings Laboratory Tests Test 05/22/17 11:46 05/22/17 20:27 05/22/17 20:48 05/23/17 03:32 Stool C. difficile Toxin (PCR) POSITIVE (NEGATIVE) Monocytes (%) (Auto) 11.1 % (0.0-8.0) Blood Urea Nitrogen 21 MG/DL (7-18) Aspartate Amino Transf (AST/SGOT) 13 U/L (15-37) Potassium Level 3.3 MEQ/L (3.5-5.1) Estimat Glomerular Filtration Rate 53 ML/MIN (>89) 71 ML/MIN (>89) Urine Leukocyte Esterase MOD (NEG) Urine WBC 13 /hpf (0-5) Red Blood Count 3.78 MIL/MM3 (4.00-5.30) Neutrophils (%) (Auto) 90.2 % (16.0-70.0) Lymphocytes (%) (Auto) 6.3 % (9.0-44.0) Lymphocytes # (Auto) 0.4 TH/MM3 (1.0-4.8) Random Glucose 107 MG/DL (74-106) Test 05/24/17 06:32 Red Blood Count 3.62 MIL/MM3 (4.00-5.30) Hemoglobin 10.9 GM/DL (11.6-15.3) Hematocrit 33.5 % (35.0-46.0) Chloride Level 108 MEQ/L (98-107) Estimat Glomerular Filtration Rate 69 ML/MIN (>89) PE at Discharge GENERAL: in NAD, no resp distress, nontoxic. Eating clear liquids during exam/ interview. HEENT: NCAT, EOMI, no scleral icterus. No conjunctival injection. MMM. NECK: Supple, no meningeal signs. CV: RRR, S1 S2. 1-2/6 systolic murmur CHEST/PULM: CTAB, no crackles, no wheezes ABD/GI: +BS, soft, nontender, nondistended EXT: 2+ DP Pulses. No calf tenderness. Trace pitting edema. NEURO: Awake, alert. normal muscle tone. SKIN: No rashes, no jaundice. Scab on left anterior bauman, measuring 0.8cm in diameter PSYCH: Mood and affect are appropriate. Speech fluent. Does not appear to respond to internal stimuli. : No CVAT Hospital Course Patient was admitted for observation. CT obtained in ED which suggested colitis. Patient started empirically on Flagyl and Ciprofloxacin. Patient reported worsening mid-back pain after CT scanner which was refractory to Morphine and Norflex. C difficile test returned positive and Cipro was discontinued. PT was consulted assisted in ambulation, and they recommended home with home health. UA on admission showed pyuria, but cultures were negative after 48 hours. Patient's diarrhea improved and she was discharged home on 14 day course of Flagyl. Her back pain improved and she was discharged with [place] 5. Patient and medical team felt it was safe for discharge with PCP follow up. Pt Condition on Discharge: Stable Discharge Instructions Follow up Referrals: PCP Follow-up - 2 Weeks New Medications: Hydrocodone-Acetaminophen (Hydrocodone-Acetaminophen) 5-325 mg Tab 1 TAB PO Q4H PRN for PAIN SCALE 6 TO 10, #10 TAB Metronidazole (Flagyl) 500 Mg Tab 500 MG PO Q8HR, #40 TAB Take one pill 3 times a day for next 13 days Continued Medications: Alprazolam (Xanax) 0.5 Mg Tab 1-2 TAB PO HS PRN for ANXIETY, #60 TAB 2 Refills Calcium Carbonate (Antacid) (Tums) 500 Mg Chew 500 MG CHEW PRN for HEARTBURN, TAB 0 Refills Cholecalciferol (D3-1000) 1,000 Unit Cap 1 CAP PO DAILY Fluticasone-Salmeterol Inh (Advair Diskus Inh) 500-50 Mcg/Blist Aer 1 PUFF INH BID, #3 INHALER 3 Refills Rinse mouth after use. Ibuprofen (Ibuprofen) 400 Mg Tab 400 MG PO HS for 5 Days, TAB 0 Refills Loperamide (Imodium A-D) 2 Mg Capsule 2 MG PO DIRECTED PRN for DIARRHEA, CAP 0 Refills One capsule after each loose stool. Not to exceed 8 tablets per day. Losartan-Hydrochlorothiazide (Losartan-Hydrochlorothiazide) 100-12.5 Mg Tab 1 TAB PO DAILY for Blood Pressure Management, #90 TAB 3 Refills Omeprazole (Omeprazole) 40 Mg Cap 40 MG PO DAILY, #30 CAP 0 Refills Hammad Pinon MD R1 May 24, 2017 10:44
[2017-06-05] MEDS ORDERED: TRAM50TA PO (16:27)
[2017-06-13] MEDS ORDERED: ADVA500A INH (10:21)
[2017-06-13] MEDS ORDERED: ALPR.5 PO (10:21)
== END 2017-05-24 15:36 | disposition home or self-care (01) ==
LOC: NEPE 19:38 → NEDA 21:59 → NEPFCDU 05-23 01:41
PROVIDERS: ADMIT Family Medicine; ATTEND Family Medicine
DX: A04.7 Enterocolitis due to Clostridium difficile (principal); K57.92 Diverticulitis of intestine, part unspecified, without perforation or abscess without bleeding; N39.0 Urinary tract infection, site not specified; I10 Essential (primary) hypertension; J45.909 Unspecified asthma, uncomplicated; M54.6 Pain in thoracic spine; M48.07 Spinal stenosis, lumbosacral region; M81.0 Age-related osteoporosis without current pathological fracture; Z86.19 Personal history of other infectious and parasitic diseases
CPT/HCPCS: 74177; 80048; 80053; 81001; 82272; 83605; 83690; 85025; 85027; 87086; 87493; 93005; 94150; 96365; 96366; 96368; 96372; 96375; 96376; 97162; 99285; G0378; G8987; G8988; J0744; J1650; J2270; J2360; J2405; J3480; J7030; J7512; Q9967